=== PATIENT | male | born 1980 ===

== ENCOUNTER 2018-11-27 20:43 | Emergency (ER) | payer BC, OTHER ==
--- NOTE | 2018-11-27 22:04 | ED ---
GI/ HPI - HPI Summary HPI Summary: Patient complains of 2 episodes of bright red blood in stool. First episode was 2 weeks ago which then resolved. Second episode was tonight. Also complains of bilateral side pain 1 week. Pain described as intermittent, mild , lasting a couple minutes at a time. Denies trauma, fever, cough, sore throat , CP, SOB, N/3/D, change in urine. Denies history of hemorrhoids, pain with defecation, foreign travel, recent ibuprofen. Medical history is none. Abdominal surgical history is none. No anti-coag. No prior history of GI bleed. - History of Current Complaint Chief Complaint: EDGIBleed Time Seen by Provider: 11/27/18 22:02 Stated Complaint: BLOOD IN STOOL PER PT Hx Obtained From: Patient Onset/Duration: Started Hours Ago Timing: Intermittent Current Severity: None Vaginal Bleeding Description: Bright Red Pain Intensity: 3 Pain Characteristics: Dull, Aching Pain Radiates to: Flank Associated Signs and Symptoms: Positive: Bright Red Blood w/Stool, Flank Pain - Allergy/Home Medications Allergies/Adverse Reactions: Allergies Allergy/AdvReac Type Severity Reaction Status Date / Time No Known Allergies Allergy Verified 11/27/18 22:17 PMH/Surg Hx/FS Hx/Imm Hx Endocrine/Hematology History: Denies: Hx Diabetes, Hx Thyroid Disease Cardiovascular History: Denies: Hx Hypertension Respiratory History: Denies: Hx Asthma, Hx Chronic Obstructive Pulmonary Disease (COPD) GI History: Denies: Hx Ulcer History: Denies: Hx Dialysis Sensory History: Denies: Hx Eye Prosthesis Opthamlomology History: Denies: Hx Legally Blind EENT History: Denies: Hx Deafness Neurological History: Denies: Hx Developmental Delay - Surgical History Surgery Procedure, Year, and Place: drain left lower leg 5 yrs after an injury Infectious Disease History: No Infectious Disease History: Denies: Hx Clostridium Difficile, Hx Hepatitis, Hx Human Immunodeficiency Virus (HIV), Hx of Known/Suspected MRSA, Hx Shingles, Hx Tuberculosis, Hx Known/ Suspected VRE, Hx Known/Suspected VRSA, History Other Infectious Disease, Traveled Outside the [place] in Last 30 Days - Family History Known Family History: Positive: Hypertension - Social History Alcohol Use: Occasionally Substance Use Type: Reports: None Smoking Status (MU): Current Some Day Smoker Type: Cigarettes Review of Systems Constitutional: Negative Eyes: Negative ENT: Negative Cardiovascular: Negative Respiratory: Negative Positive: Other Genitourinary: Negative Musculoskeletal: Negative Skin: Negative Neurological: Negative Psychological: Normal All Other Systems Reviewed And Are Negative: Yes Physical Exam - Summary Physical Exam Summary: Normal rectal exam. No evidence of bleeding or hemorrhoids, fissures. Triage Information Reviewed: Yes Vital Signs On Initial Exam: Initial Vitals Temp Pulse Resp BP Pulse Ox 98.4 F 88 15 120/80 98 11/27/18 20:45 11/27/18 20:45 11/27/18 20:45 11/27/18 20:45 11/27/18 20:45 Vital Signs Reviewed: Yes Appearance: Positive: Well-Appearing Skin: Positive: Warm Head/Face: Positive: Normal Head/Face Inspection Eyes: Positive: Normal ENT: Positive: Normal ENT inspection Neck: Positive: Supple Respiratory/Lung Sounds: Positive: Clear to Auscultation Cardiovascular: Positive: Normal Abdomen Description: Positive: Nontender Musculoskeletal: Positive: Normal Neurological: Positive: Normal Psychiatric: Positive: Normal AVPU Assessment: Alert - Luz Coma Scale Best Eye Response: 4 - Spontaneous Best Motor Response: 6 - Obeys Commands Best Verbal Response: 5 - Oriented Coma Scale Total: 15 Procedures - Sedation Patient Received Moderate/Deep Sedation with Procedure: No Diagnostics - Vital Signs Vital Signs Temp Pulse Resp BP Pulse Ox 11/27/18 20:45 98.4 F 88 15 120/80 98 - Laboratory Result Diagrams: 11/27/18 22:07 11/27/18 22:07 Lab Statement: Any lab studies that have been ordered have been reviewed, and results considered in the medical decision making process. GIGU Course/Dx - Course Course Of Treatment: Patient complains of 2 episodes of bright red blood in stool. First episode was 2 weeks ago which then resolved. Second episode was tonight. Also complains of bilateral side pain 1 week. Pain described as intermittent, mild, lasting a couple minutes at a time. Denies trauma, fever, cough, sore throat, CP, SOB, N/3/D, change in urine. Denies history of hemorrhoids, pain with defecation, foreign travel, recent ibuprofen. Medical history is none. Abdominal surgical history is none. No anti-coag. No prior history of GI bleed. Vital signs within normal limits. Labs unremarkable. No active bleeding at this time. Follow-up with GI for further evaluation. - Diagnoses Provider Diagnoses: GI bleed Discharge ED - Sign-Out/Discharge Documenting (check all that apply): Patient Departure - Discharge Plan Condition: Stable Disposition: HOME Patient Education Materials: Gastrointestinal Bleeding (ED) Referrals: No Primary Care Phys,NOPCP [Primary Care Provider] - Meri Hamilton MD [Medical Doctor] - Additional Instructions: Follow-up with GI Dr Hamilton for further evaluation of rectal bleeding. Return to the ED for any new or worsening symptoms. - Billing Disposition and Condition Condition: STABLE Disposition: Home
[2018-11-27 22:14] LABS: ABS Eosinophils 0.1 10^3/ul (0-0.6); ABS Lymphocytes 1.9 10^3/ul (1.0-4.8); ABS Monocytes 0.5 10^3/ul (0-0.8); ABS Neutrophils 3.2 10^3/ul (1.5-7.7); Eosinophil % 1.9 %; Hematocrit 41 % (42-52); Hemoglobin 14.4 g/dL (14.0-18.0); Lymphocyte % 33.2 %; Mean Corpuscular HGB Conc 35 g/dL (31-36); Mean Corpuscular Hemoglobin 32 pg (27-31); Mean Corpuscular Volume 90 fL (80-94); Mean Platelet Volume 8.8 fL (7.4-10.4); Platelet Count 208 10^3/uL (150-450); Red Blood Count 4.56 10^6 /uL (4.18-5.48); Red Cell Distribution Width 14 % (10-15); White Blood Count 5.8 10^3/uL (3.5-10.8)
[2018-11-27 22:25] LABS: Activated Partial Thrombo Time 41.8 seconds (26.0-38.0); INR 1.23 (0.82-1.09)
[2018-11-27 22:30] LABS: Albumin 4.3 g/dL (3.2-5.2); Albumin/Globulin Ratio 1.5 (1-3); BUN/Creatinine Ratio 19.3 (8-20); Calcium 9.1 mg/dL (8.6-10.3); EGFR Non-African American 71.9 (>60); Globulin 2.8 g/dL (2-4); Potassium 3.9 mmol/L (3.5-5.0); Total Bilirubin 0.4 mg/dL (0.2-1.0); Total Protein 7.1 g/dL (6.4-8.9)
[2018-11-28 00:10] VITALS: BP 128/70
== END 2018-11-28 00:08 | disposition home or self-care (01) ==
LOC: ED 20:43
DX: K92.2 Gastrointestinal hemorrhage, unspecified (principal); Z72.0 Tobacco use; R10.84 Generalized abdominal pain
CPT/HCPCS: 36415; 80053; 82270; 85025; 85610; 85730; 86850; 86900; 86901; 99282